=== PATIENT | male | born 1930 | race Caucasian/White ===

== ENCOUNTER 2020-08-13 06:28 | Emergency (ER) | payer OTHER ==
[~2020-08-13] VITALS: Ht 170.2 cm; Wt 74.8 kg
[2020-08-13 07:15] LABS: ABSOLUTE BASOPHILS 0.1 thou/uL (0.0-0.2); ABSOLUTE EOSINOPHILS 0.1 thou/uL (0.0-0.7); ABSOLUTE LYMPHOCYTES 0.6 thou/uL (0.8-5.3); ABSOLUTE MONOCYTES 0.7 thou/uL (0.0-1.2); ABSOLUTE NEUTROPHILS 6.5 thou/uL (1.6-8.1); BASOPHILS 0.7 %; EOSINOPHILS 1.1 %; HEMATOCRIT 43.4 % (42.0-52.0); HEMOGLOBIN 14.5 gm/dL (14.0-18.0); LYMPHOCYTES 7.8 %; MCH 30.6 pg (26.0-34.0); MCHC 33.3 g/dL (28.0-37.0); MCV 91.7 fL (80.0-100.0); MONOCYTES 8.6 %; NUCLEATED RBCS 0 /100WBC; PLATELET COUNT* 263 thou/uL (150-400); POLYS 81.8 %; RBC 4.74 mil/uL (4.50-6.00); RDW-CV 14.6 % (10.5-14.5)
[2020-08-13 07:25] LABS: CALCIUM 8.5 mg/dL (8.5-10.1); POTASSIUM 3.7 mmol/L (3.5-5.1)
[2020-08-13 07:36] LABS: MAGNESIUM 2.1 mg/dL (1.8-2.4); TOTAL BILIRUBIN 0.6 mg/dL (<0.1-1.0); TOTAL PROTEIN 6.8 g/dL (6.4-8.2)
[2020-08-13] MEDS ORDERED: COZAAR100 MG PO (07:39)
[2020-08-13] MEDS ORDERED: LIPITOR10 MG PO (07:40)
[2020-08-13] MEDS ORDERED: TRAZODONE HCL50 MG PO (07:40)
[2020-08-13] MEDS ORDERED: VITAMIN D310 MC2 PO (07:41)
[2020-08-13] MEDS ORDERED: NORVASC10 MG PO (07:41)
[2020-08-13] MEDS ORDERED: CARVEDILOL12.5 MG PO (07:41)
[2020-08-13] MEDS ORDERED: LUMIGAN2.5 M1 OPHTHALMIC (07:42)
[2020-08-13] MEDS ORDERED: NIGHTTIME SLEEP25 M2 PO (07:43)
[2020-08-13 10:36] LABS: URINE BILIRUBIN NEGATIVE (Negative); URINE BLOOD 2+ (Negative); URINE CLARITY CLEAR; URINE COLOR YELLOW; URINE GLUCOSE-RANDOM NEGATIVE (Negative); URINE KETONES NEGATIVE (Negative); URINE LEUKOCYTES-REFLEX NEGATIVE (Negative); URINE NITRITE-REFLEX NEGATIVE (Negative); URINE PROTEIN NEGATIVE (Negative)
[2020-08-13 10:46] LABS: SQUAMOUS 0-3 Few /LPF (0-3)
[2020-08-13 10:47] LABS: BACTERIA-REFLEX 1-9 Few /HPF (None Seen); CASTS None Seen /LPF (None Seen); CRYSTALS None Seen /LPF (None Seen); MUCUS None Seen strn/LPF (None Seen); URINE WBC-REFLEX 0-5 Rare /HPF (0-5)
[2020-08-13 10:54] VITALS: BP 157/67
--- NOTE | 2020-08-13 14:49 | EKG ---
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: AT : 1930 Requested By: Alia Jacobson Order Number: [id number] MD: Binu Guillen Measurements Intervals [place] Rate: 58 P: 54 CT: 170 QRS: 22 QRSD: 145 T: 120 QT: 413 QTc: 406 Interpretive Statements Sinus rhythm Multiple premature complexes, supraven with abberancy Probable left atrial enlargement LVH with secondary repolarization abnormality Compared to ECG 01/10/2009 12:48:37 pac's noted Electronically Signed On 08-13-2020 14:48:40 CDT by Binu Guillen [email or web address] <ELECTRONICALLY SIGNED> By: Binu Guillen MD, [facility] 08/13/20 1448 Binu Guillen MD, [facility] /EPI
== END 2020-08-13 10:55 | disposition home or self-care (01) ==
LOC: M.ERS 06:28
PROVIDERS: Emergency Medicine
DX: R53.1 Weakness (principal); R55 Syncope and collapse; I10 Essential (primary) hypertension; Z79.899 Other long term (current) drug therapy; Z98.890 Other specified postprocedural states

== ENCOUNTER 2020-08-15 16:47 | Inpatient (IN) | payer OTHER ==
[~2020-08-15] VITALS: Ht 170.2 cm; Wt 72.0 kg
[~2020-08-15 16:47] MED LIST: CARVEDILOL12.5 MG PO; COZAAR100 MG PO; LIPITOR10 MG PO; LUMIGAN2.5 M1 OPHTHALMIC; NIGHTTIME SLEEP25 M2 PO; NORVASC10 MG PO; TRAZODONE HCL50 MG PO; VITAMIN D310 MC2 PO
[2020-08-15 16:52] VITALS: BP 73/40
[2020-08-15 17:12] LABS: HEMATOCRIT 41.5 % (42.0-52.0); HEMOGLOBIN 13.5 gm/dL (14.0-18.0); MCH 30.1 pg (26.0-34.0); MCHC 32.5 g/dL (28.0-37.0); MCV 92.7 fL (80.0-100.0); MPV 8.3 fl. (7.2-11.1); NUCLEATED RBCS 0 /100WBC; PLATELET COUNT* 293 thou/uL (150-400); RBC 4.48 mil/uL (4.50-6.00); RDW-CV 14.9 % (10.5-14.5); WBC 11.1 thou/uL (4.0-11.0)
[2020-08-15 17:26] LABS: CALCIUM 8.8 mg/dL (8.5-10.1)
[2020-08-15 17:28] LABS: CREATININE 2.2 mg/dL (0.6-1.3)
[2020-08-15 17:37] LABS: ALBUMIN 3.1 g/dL (3.4-5.0); TOTAL PROTEIN 6.5 g/dL (6.4-8.2)
[2020-08-15 17:40] LABS: ABSOLUTE BASOPHILS 0.1 thou/uL (0.0-0.2); ABSOLUTE LYMPHOCYTES 0.2 thou/uL (0.8-5.3); ABSOLUTE MONOCYTES 0.3 thou/uL (0.0-1.2); ABSOLUTE NEUTROPHILS 10.4 thou/uL (1.6-8.1); PLATELET ESTIMATE ADEQUATE
[2020-08-15 18:00] LABS: URINE BLOOD 3+ (Negative); URINE CLARITY CLEAR; URINE COLOR YELLOW; URINE GLUCOSE-RANDOM NEGATIVE (Negative); URINE KETONES TRACE (Negative); URINE LEUKOCYTES-REFLEX NEGATIVE (Negative); URINE NITRITE-REFLEX NEGATIVE (Negative); URINE PROTEIN TRACE (Negative); URINE SPECIFIC GRAVITY 1.025 (1.005-1.030)
[2020-08-15 18:02] LABS: ICTOTEST (BILI CONFIRMATORY) Negative (Negative); URINE BILIRUBIN 2+ (Negative)
[2020-08-15 18:07] LABS: HYALINE CASTS >10 Many /LPF (None Seen); MUCUS >6 Heavy strn/LPF (None Seen)
[2020-08-15 18:08] LABS: SQUAMOUS 4-10 Moderate /LPF (0-3); URINE RBC >20 Many /HPF (0-2); URINE WBC-REFLEX 0-5 Rare /HPF (0-5)
[2020-08-15 18:09] LABS: BACTERIA-REFLEX 1-9 Few /HPF (None Seen); CRYSTALS None Seen /LPF (None Seen)
[2020-08-15 20:10] VITALS: BP 116/54
[2020-08-16 04:00] VITALS: BP 148/55
--- NOTE | 2020-08-16 04:40 | NUR ---
ASSUMED CARE OF PATIENT AT APPROXIMATELY 2000. PATIENT BECAME INCREASINGLY CONFUSED THE NIGHT PROGRESSED. PATIENT WAS RESTLESS AND DID NOT SLEEP. PATIENT CALLED OUT THROUGH THE NIGHT AND WANTS TO GO HOME. PATIENT WAS NOT EASILY REDIRECTED.
[2020-08-16 08:00] VITALS: BP 148/70
--- NOTE | 2020-08-16 10:47 | EKG ---
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: : 1930 Requested By: Ovidio Jacobson Order Number: [id number] MD: Sandip Gutiérrez Measurements Intervals [place] Rate: 64 P: 23 MT: 166 QRS: 36 QRSD: 87 T: 132 QT: 425 QTc: 439 Interpretive Statements Sinus rhythm Atrial premature complexes Abnormal R-wave progression, early transition Borderline repol abnrm, anterolateral leads Compared to ECG 08/13/2020 06:38:44 Atrial premature complex(es) now present Strict voltage criteria for left ventricular hypertrophy no longer present Electronically Signed On 08-16-2020 10:47:00 CDT by Sandip Gutiérrez [email or web address] <ELECTRONICALLY SIGNED> By: Sandip Gutiérrez MD, [facility] 08/16/20 1047 170 170 Sandip Gutiérrez MD, [facility] /EPI
[2020-08-16 14:07] VITALS: BP 128/55
--- NOTE | 2020-08-16 14:40 | NUR ---
Pt is A&O. Resides at home with family. Pt states he has a walker and cane at home, primarily uses the walker. No home o2. No hx of HH or SNF. Goal is home at dc, per Pt, Pt states that he may be open to HH. CM spoke with , wants Pt placed for SNF, CM left VM for Pt's , await call back. Apparently there is concern regarding her ability to care for Pt at home anymore. Therapy evals ordered. CM following.
[2020-08-16 19:42] VITALS: BP 138/58
[2020-08-16 20:00] VITALS: BP 154/68
[2020-08-17] VITALS (7 sets, daily range): BP systolic 104–162; BP diastolic 58–71
[2020-08-17 06:22] LABS: ABSOLUTE BASOPHILS 0.1 thou/uL (0.0-0.2); ABSOLUTE EOSINOPHILS 0.2 thou/uL (0.0-0.7); ABSOLUTE LYMPHOCYTES 0.9 thou/uL (0.8-5.3); ABSOLUTE MONOCYTES 0.6 thou/uL (0.0-1.2); ABSOLUTE NEUTROPHILS 7.6 thou/uL (1.6-8.1); BASOPHILS 0.6 %; EOSINOPHILS 2.1 %; HEMOGLOBIN 13.3 gm/dL (14.0-18.0); LYMPHOCYTES 9.2 %; MCH 30.4 pg (26.0-34.0); MCHC 33.2 g/dL (28.0-37.0); MCV 91.4 fL (80.0-100.0); MONOCYTES 6.5 %; MPV 7.9 fl. (7.2-11.1); NUCLEATED RBCS 0 /100WBC; POLYS 81.6 %; RBC 4.38 mil/uL (4.50-6.00); RDW-CV 14.8 % (10.5-14.5); WBC 9.3 thou/uL (4.0-11.0)
[2020-08-17 06:27] LABS: CALCIUM 8.1 mg/dL (8.5-10.1); POTASSIUM 3.5 mmol/L (3.5-5.1)
[2020-08-17 06:32] LABS: CREATININE 1.1 mg/dL (0.6-1.3)
[2020-08-17 06:36] LABS: PLATELET COUNT* 212 thou/uL (150-400)
--- NOTE | 2020-08-17 09:40 | NUR ---
WOUND NURSE: PATIENT SEEN TO ADDRESS MULTIPLE SMALL ABRASIONS ON BILATERAL LOWER EXTREMITIES PRESENT ON THE PRETIBIAL ASPECTS FROM ABOVE THE ANKLES TO BELOW THE KNEES. PATIENT STATES THIS IS THE RESULT OF FREQUENT FALLS. ALL ARE COVERED WITH SCABS AND THERE ARE NO OPEN OR DRAINING WOUNDS NOTED. FEET ARE WARM AND PINK WITH CAPILLARY REFILL < 3 SECONDS. PEDAL PULSES ARE PALPABLE BILATERALLY. PATIENT SEEMS CONFUSED AND IS CURRENTLY NOT TEACHEABLE. DID TRY TO INSTRUCT ON SAFETY WITH MOBILITY, BUT PATIENT DOESN'T SEEM RECEPTIVE AT THIS TIME.
--- NOTE | 2020-08-17 13:31 | NUR ---
REFERRAL PACKET FAXED TO [facility] ([phone]) [facility] ([phone]) AWAITING APPROVAL. CM TO CONTINUE TO FOLLOW FOR SAFE D/C PLANNING.
--- NOTE | 2020-08-17 14:35 | NUR ---
DC plan changed. Faxed snf referral to [facility] per dtr's request. Await insurance auth.
--- NOTE | 2020-08-17 14:51 | NUR ---
ELIJAH BRANDON Bedside Note: Referral received for HH. Attempted meaningful conversation and assessment of patient who could not say for sure where he is and could not give his address (he has recently moved). I suggested we call his and he said he would not believe anything I said, so we called her and put the call on speaker. He then said it was not her, and then accused her of lying, and asked her what her pet name for him was and she said [place], spelled with an s in front of it and he then said she was being coached. I placed a call to the daughter DENIS Veloz and stated he seemed unsafe to be cared for at home and she said she wanted him to go back to [place] [facility]. Texted spring encaser, Grover and Dr. Cuellar this all. Will not discharge on HH.
--- NOTE | 2020-08-17 18:46 | NUR ---
ASSUMED PT CARE AT 0730, PT ALERT AND ORIENTED TO SELF ONLY, VERY CONFUSED, AGITATED AND YELLS OUT FREQUENTLY. PT'S SON, ELVIS, CALLED AND UPDATED ON POC. PT FREQUENTLY ORIENTED TO POC, MEDS, GOALS, DC TOMORROW, LABS BUT CONTINUED TO ASK FREQUENTLY "WHAT'S GOING ON". PT THINKS NURSING STAFF IS CONSPIRING AGAINST HIM AND STATES THAT WHAT WE ARE DOING IS "AGAINST THE LAW", I ASKED WHAT THAT MEANT AND PT STATES "YOU KNOW WHAT I'M TALKING ABOUT". PT PARANOID AND AGITATED THROUGHOUT SHIFT. SON, ELVIS, NOW HERE AND PT IS CALM. PT FREQUENTLY CHECKED ON TO GET HIM TO THE BATHROOM AND MEET NEEDS.
[2020-08-18] VITALS (7 sets, daily range): BP systolic 111–160; BP diastolic 52–82
--- NOTE | 2020-08-18 02:30 | NUR ---
ASSUMED CARE OF PT AT 1900. PT IS ALERT AT TIMES AND CONFUSED AT TIMES. PT IS VERY FORGETFUL. VSS. PERRLA. PT REPORTS ONGOING LEG CRAMPS. PT WAS GIVEN FLEXERIL AND STATES THAT IT IS BETTER. PT IS ON ROOM AIR. PT IS SINUS BRADYCARDIA ON THE TELEMETRY. PT IS RESTING COMFORTABLY IN BED. RESPIRATIONS ARE EVEN AND NONLABORED. WILL CONTINUE TO MONITOR PT.
[2020-08-18 05:05] LABS: CALCIUM 8.3 mg/dL (8.5-10.1); CREATININE 0.9 mg/dL (0.6-1.3); POTASSIUM 3.2 mmol/L (3.5-5.1)
[2020-08-18 05:06] LABS: ABSOLUTE BASOPHILS 0.1 thou/uL (0.0-0.2); ABSOLUTE EOSINOPHILS 0.2 thou/uL (0.0-0.7); ABSOLUTE LYMPHOCYTES 0.9 thou/uL (0.8-5.3); ABSOLUTE MONOCYTES 0.7 thou/uL (0.0-1.2); ABSOLUTE NEUTROPHILS 6.7 thou/uL (1.6-8.1); BASOPHILS 0.7 %; EOSINOPHILS 2.4 %; HEMATOCRIT 42.8 % (42.0-52.0); HEMOGLOBIN 14.3 gm/dL (14.0-18.0); LYMPHOCYTES 10.8 %; MCH 30.3 pg (26.0-34.0); MCHC 33.5 g/dL (28.0-37.0); MCV 90.7 fL (80.0-100.0); MONOCYTES 8.2 %; MPV 8.5 fl. (7.2-11.1); NUCLEATED RBCS 0 /100WBC; PLATELET COUNT* 223 thou/uL (150-400); POLYS 77.9 %; RBC 4.72 mil/uL (4.50-6.00); RDW-CV 14.8 % (10.5-14.5); WBC 8.6 thou/uL (4.0-11.0)
--- NOTE | 2020-08-18 10:15 | NUR ---
CM heard back from [facility], they do not have any male skilled beds. CM updated Pt's dtr, next choices would be [facility] or [facility]. Referrals to be sent. Continue to await insurance auth.
--- NOTE | 2020-08-18 13:17 | NUR ---
REFERRAL PACKET FAXED TO ([facility]) [facility] [phone] AWAITING APPROVAL. CM TO CONTINUE TO FOLLOW FOR SAFE DC PLANNING.
[2020-08-18] MEDS ORDERED: KEFLEX250 MG PO ×2 (14:24)
--- NOTE | 2020-08-18 19:00 | NUR ---
Pt alert, oriented to self only. Forgetful, and calls every 15 to 30 minutes stating he needs to "use the bathroom." When asked whether he needs to urinate or defecate, pt states "both." Pt assisted to BSC multiple times, but no BM. Voids approx 200 ml per void, but oftentimes does not void when asking to go to the bathroom. Bladder scan today showed 400 ml, and pt voided afterwards. VSS. Awaiting insurance authorization for accepatnce to [facility]. Will continue to monitor.
[2020-08-19 08:10] VITALS: BP 138/72
--- NOTE | 2020-08-19 10:12 | NUR ---
UPDATE FROM [employer] PT. AUTH IS UNDER REVIEW, PT. IS MEDICALLY APPROPRITE FOR [employer]. AWAITING APPROVAL FROM [employer]. CM TO CONTINUE TO FOLLOW FOR SAFE D/C PLANNING.
[2020-08-19 12:00] VITALS: BP 131/60
--- NOTE | 2020-08-19 12:19 | NUR ---
Continue to await insurance auth for skilled at [facility]
--- NOTE | 2020-08-19 14:25 | NUR ---
[facility] UPDATE MEDICAL DOCTOR REVIEWED CLINICALS STATED PT. SEEMED MEDICALLY ABLE TO D/C HOME WITH HH, [facility] WAS REQUESTED BY CIVIL ENGINEERING TEACHER AT [facility] TEAM. CM TO CONTINE TO FOLLOW FOR SAFE D/C PLANNING.
[2020-08-19 16:07] VITALS: BP 126/71
--- NOTE | 2020-08-19 17:45 | NUR ---
Attempted to call report to [facility]; employee on phone said there was no answer on the unit, but would leave message for them to call for report. 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 Pt discharged from unit per WC at 1740. athletic monitor and IV dc'd; pt dressed and ready for discharge prior to supper. Belongings packed and sent with patient.
== END 2020-08-19 17:45 | DRG 682 ==
LOC: M.ERS 16:47 → M.2W 17:34 → M.TBA-ER 17:34 → M.2W 20:01
PROVIDERS: Family Medicine; ADMIT Internal Medicine; ATTEND Internal Medicine
DX: N17.0 Acute kidney failure with tubular necrosis (principal); R65.11 Systemic inflammatory response syndrome (SIRS) of non-infectious origin with acute organ dysfunction; L03.115 Cellulitis of right lower limb; I95.9 Hypotension, unspecified; I10 Essential (primary) hypertension; Z20.822 Contact with and (suspected) exposure to COVID-19; Z98.42 Cataract extraction status, left eye; Z98.41 Cataract extraction status, right eye

== ENCOUNTER 2020-08-20 16:59 | Inpatient (IN) | payer OTHER ==
[~2020-08-20] VITALS: Ht 180.3 cm; Wt 71.2 kg
[~2020-08-20 16:59] MED LIST changes: +KEFLEX250 MG PO
[2020-08-20 17:04] VITALS: BP 152/69
[2020-08-20 19:13] LABS: ABSOLUTE EOSINOPHILS 0.1 thou/uL (0.0-0.7); ABSOLUTE LYMPHOCYTES 0.9 thou/uL (0.8-5.3); ABSOLUTE MONOCYTES 1.1 thou/uL (0.0-1.2); ABSOLUTE NEUTROPHILS 13.7 thou/uL (1.6-8.1); BASOPHILS 0.3 %; EOSINOPHILS 0.7 %; HEMATOCRIT 49.4 % (42.0-52.0); LYMPHOCYTES 5.6 %; MCHC 33.6 g/dL (28.0-37.0); MCV 92.2 fL (80.0-100.0); MONOCYTES 6.9 %; MPV 8.5 fl. (7.2-11.1); NUCLEATED RBCS 0 /100WBC; PLATELET COUNT* 242 thou/uL (150-400); POLYS 86.5 %; RBC 5.36 mil/uL (4.50-6.00); RDW-CV 14.8 % (10.5-14.5); WBC 15.9 thou/uL (4.0-11.0)
[2020-08-20 19:14] LABS: HEMOGLOBIN 16.6 gm/dL (14.0-18.0)
[2020-08-20 19:19] LABS: CALCIUM 9.3 mg/dL (8.5-10.1); CREATININE 1.4 mg/dL (0.6-1.3); POTASSIUM 4.3 mmol/L (3.5-5.1)
[2020-08-20 19:24] LABS: ALBUMIN 3.4 g/dL (3.4-5.0); TOTAL BILIRUBIN 0.7 mg/dL (<0.1-1.0); TOTAL PROTEIN 7.4 g/dL (6.4-8.2)
--- NOTE | 2020-08-20 20:48 | NUR ---
UNABLE TO ADVANCE JUAN [address] UNABLE TO ADVANCE 18 FR CATHETER, COUDE. SPOKE TO MARQUES, WHO SPOKE TO UROLOGY. PATIENT IS TO BE ADMITTED.
[2020-08-20 23:01] VITALS: BP 133/67
[2020-08-20 23:15] VITALS: BP 161/74
[2020-08-21 08:30] VITALS: BP 142/77
--- NOTE | 2020-08-21 11:08 | NUR ---
Patient being taken to OR for cath placement by bed. IV is not working, OR nurse has been notified. Daughter called to concent for procedure, verified with 2 RN's.
--- NOTE | 2020-08-21 12:55 | NUR ---
PT RETURN FROM OR WITH NEW JUAN IN PLACE. NO CBI ORDERS GIVEN.
[2020-08-21 13:45] VITALS: BP 112/61
--- NOTE | 2020-08-21 14:26 | NUR ---
BLADDER SCAN REVEALS 6ML WITH NEW JUAN.
[2020-08-21 16:43] VITALS: BP 79/52
[2020-08-21 20:00] VITALS: BP 124/64
[2020-08-21 21:00] VITALS: BP 119/64
[2020-08-22 00:24] VITALS: BP 112/56
[2020-08-22 04:06] VITALS: BP 128/61
[2020-08-22 07:53] VITALS: BP 135/69
[2020-08-22 10:42] LABS: HEMATOCRIT 40.1 % (42.0-52.0); MCH 30.9 pg (26.0-34.0); MCHC 33.6 g/dL (28.0-37.0); MPV 8.8 fl. (7.2-11.1); RBC 4.36 mil/uL (4.50-6.00); WBC 12.4 thou/uL (4.0-11.0)
[2020-08-22 10:44] LABS: CALCIUM 8.2 mg/dL (8.5-10.1); POTASSIUM 3.6 mmol/L (3.5-5.1)
[2020-08-22 10:47] LABS: HEMOGLOBIN 13.5 gm/dL (14.0-18.0)
[2020-08-22 11:11] VITALS: BP 117/59
[2020-08-22 15:37] VITALS: BP 144/63
--- NOTE | 2020-08-22 17:48 | NUR ---
PT UP TO CHAIR THIS EVENING FOR DINNER AND TAKING IN GOOD PO. JUAN CATHETER REMAIN IN PLACE COLLECTING YELLOW URINE . PT DENIES PAIN OR SOA. WILL CONTINUE TO ASSESS.
[2020-08-23 04:19] LABS: HEMATOCRIT 40.9 % (42.0-52.0); HEMOGLOBIN 13.7 gm/dL (14.0-18.0); MCHC 33.6 g/dL (28.0-37.0); MCV 92.1 fL (80.0-100.0); RBC 4.44 mil/uL (4.50-6.00); WBC 10.3 thou/uL (4.0-11.0)
[2020-08-23 04:44] VITALS: BP 114/71
[2020-08-23 08:08] VITALS: BP 147/68
[2020-08-23 08:16] VITALS: BP 147/68
--- NOTE | 2020-08-23 09:57 | NUR ---
DR NOTIFIED PT C/O BILAT LEG CRAMPS-WORSE ON THE LEFT. BILAT PVD ON LEGS ALTHOUGH LLE MORE RED, VERY WARM, AND POSITIVE FOR HOMANS SIGN. ALSO NOTIFIED OF SURGICAL NOTE, NO DVT PROPHYLAXSIS REINSTATED, OR COAGS ON FILE. VENOUS DOPPLER ORDERED FOR AM.
--- NOTE | 2020-08-23 10:17 | EKG ---
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: KAREN : 1930 Requested By: Jasmyn Lockwood Order Number: [id number] Reading MD: Binu Guillen Measurements Intervals [place] Rate: 65 P: 50 NE: 178 QRS: 16 QRSD: 92 T: 163 QT: 428 QTc: 445 Interpretive Statements Sinus rhythm Atrial premature complexes Repol abnrm suggests ischemia, anterolateral Compared to ECG 08/15/2020 17:03:58 Possible ischemia now present Electronically Signed On 08-23-2020 10:17:49 CDT by Binu Guillen [email or web address] <ELECTRONICALLY SIGNED> By: Binu Guillen MD, [facility] 08/23/20 1017 0848 Binu Guillen MD, [facility] /EPI
--- NOTE | 2020-08-23 10:20 | EKG ---
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: KAREN : 1930 Requested By: Jasmyn Lockwood Order Number: [id number] Reading MD: Binu Guillen Measurements Intervals [place] Rate: 61 P: 53 MT: 177 QRS: 32 QRSD: 91 T: 182 QT: 439 QTc: 443 Interpretive Statements Sinus rhythm Atrial premature complexes in couplets Abnormal R-wave progression, early transition Repol abnrm suggests ischemia, anterolateral Compared to ECG 08/15/2020 17:03:58 Possible ischemia still present Electronically Signed On 08-23-2020 10:20:31 CDT by Binu Guillen [email or web address] <ELECTRONICALLY SIGNED> By: Binu Guillen MD, [facility] 08/23/20 1020 1351 1351 Binu Guillen MD, [facility] /EPI
[2020-08-23] MEDS ORDERED: LEVOFLOXACIN500 MG PO ×2 (10:25)
--- NOTE | 2020-08-23 10:52 | NUR ---
Nutrition: Pt admitted with davis cath problem. Consult received for wt change. Pt stated he usually weighs about 165#. Current wt recorded as 157#. Pt stated he hasn't noticed any wt change. Per pt and nsg, he is eating well, 50-100% of meals. Meds, hx, labs noted. Albumin 3.4. Chopped diet. He did agree to Ensure vanilla, although he has discharge orders for today. Consider low nutrition risk. Will order Ensure for lunch.
--- NOTE | 2020-08-23 13:18 | NUR ---
Pt dc to [facility] on 08/19, readmitted to have davis placed. Pt discharging back to [facility] today, facility to continuous pickling line pickler helper at 4. Chart copied. Nurse report number is [phone]. Updated Pt's dtr. SNF Liaison to come and continuous pickling line pickler helper dc orders.
--- NOTE | 2020-08-23 15:07 | NUR ---
WOUND NURSE: PATIENT SEEN TO ADDRESS MULTIPLE SCABS ON BLE WHICH ARE CLEAN, DRY, AND INTACT EXCEPT FOR ONE ON THE LEFT PRETIBIAL ASPEC AND WHICH MEASURES 2.5 X 1.0 X 0.1 CM. CONTAINS PARTIAL THICKNESS TISSUE LOSS AND NO ACTIVE DRAINAGE. SCANT SEROUS DRAINAGE ON BORDERED FOAM DRESSING NOTED. PLAN TO PROTECT LEGS WITH SINGLE LAYER TUBIGRIPS AND CONTINUE WITH BORDERED FOAM DRESSING ON THE ONLY WOUND ON LLE OPEN.
--- NOTE | 2020-08-23 18:05 | NUR ---
WAITING ON THEM TO PICK PT UP FOR [facility] TO [facility]
--- NOTE | 2020-08-23 18:31 | NUR ---
PT DISCHARGED TO [facility]
== END 2020-08-23 18:31 | DRG 698 ==
LOC: M.ERS 16:59 → M.TBA-ER 20:54 → M.2W 20:54
PROVIDERS: Internal Medicine; Physician Assistant; ADMIT Internal Medicine; ATTEND Internal Medicine
PROC: 0T2BX0Z Change Drainage Device in Bladder, External Approach (ICD-10-PCS; principal; 2020-08-22)
PROC: 0TCB8ZZ Extirpation of Matter from Bladder, Via Natural or Artificial Opening Endoscopic (ICD-10-PCS; principal; 2020-08-22)
DX: T83.9XXA Unspecified complication of genitourinary prosthetic device, implant and graft, initial encounter (principal); N17.0 Acute kidney failure with tubular necrosis; I10 Essential (primary) hypertension; E78.5 Hyperlipidemia, unspecified; R31.0 Gross hematuria; D72.829 Elevated white blood cell count, unspecified; R33.9 Retention of urine, unspecified; S39.83XA Other specified injuries of pelvis, initial encounter; X58.XXXA Exposure to other specified factors, initial encounter; Y83.8 Other surgical procedures as the cause of abnormal reaction of the patient, or of later complication, without mention of misadventure at the time of the procedure; Z20.822 Contact with and (suspected) exposure to COVID-19; Z96.1 Presence of intraocular lens; Y92.89 Other specified places as the place of occurrence of the external cause; Z79.899 Other long term (current) drug therapy; Z98.41 Cataract extraction status, right eye; Y93.89 Activity, other specified; Y99.8 Other external cause status

== ENCOUNTER 2020-09-16 09:49 | Inpatient (IN) | payer OTHER ==
[~2020-09-16] VITALS: Ht 177.8 cm; Wt 84.6 kg
[~2020-09-16 09:49] MED LIST changes: +LEVOFLOXACIN500 MG PO
[2020-09-16 09:50] VITALS: BP 135/62
[2020-09-16] MEDS ORDERED: XANAX 0.5 MG0.5 MG PO (10:04)
[2020-09-16] MEDS ORDERED: VITAMIN C500 M2 PO (10:05)
[2020-09-16] MEDS ORDERED: GLYCOLAX119 GM (10:06)
[2020-09-16] MEDS ORDERED: MILK OF MA400 MG/5 M PO (10:07)
[2020-09-16] MEDS ORDERED: LIDOCAINE PAIN1 EACH TOP (10:07)
[2020-09-16] MEDS ORDERED: CVS SENNA PLUS1 EACH PO (10:07)
[2020-09-16 10:40] LABS: HEMATOCRIT 41.5 % (42.0-52.0); HEMOGLOBIN 13.8 gm/dL (14.0-18.0); MCH 30.5 pg (26.0-34.0); MCHC 33.3 g/dL (28.0-37.0); MCV 91.7 fL (80.0-100.0); MPV 8.2 fl. (7.2-11.1); NUCLEATED RBCS 0 /100WBC; PLATELET COUNT* 217 thou/uL (150-400); RBC 4.53 mil/uL (4.50-6.00); RDW-CV 15.1 % (10.5-14.5); WBC 20.6 thou/uL (4.0-11.0)
[2020-09-16 10:49] LABS: CALCIUM 8.8 mg/dL (8.5-10.1); CREATININE 1.1 mg/dL (0.6-1.3); POTASSIUM 4.7 mmol/L (3.5-5.1)
[2020-09-16 11:01] LABS: ALBUMIN 2.5 g/dL (3.4-5.0); TOTAL BILIRUBIN 0.6 mg/dL (<0.1-1.0)
[2020-09-16 11:21] LABS: ABSOLUTE LYMPHOCYTES 0.6 thou/uL (0.8-5.3); ABSOLUTE MONOCYTES 0.2 thou/uL (0.0-1.2); ABSOLUTE NEUTROPHILS 19.8 thou/uL (1.6-8.1); PLATELET ESTIMATE ADEQUATE
[2020-09-16 13:19] LABS: URINE BILIRUBIN NEGATIVE (Negative); URINE BLOOD 3+ (Negative); URINE CLARITY CLEAR; URINE COLOR YELLOW; URINE GLUCOSE-RANDOM NEGATIVE (Negative); URINE KETONES NEGATIVE (Negative); URINE LEUKOCYTES-REFLEX TRACE (Negative); URINE NITRITE-REFLEX NEGATIVE (Negative); URINE PROTEIN 1+ (Negative); URINE SPECIFIC GRAVITY >= 1.030 (1.005-1.030)
[2020-09-16 13:27] LABS: BACTERIA-REFLEX 1-9 Few /HPF (None Seen); MUCUS 0-3 Light strn/LPF (None Seen); SQUAMOUS 4-10 Moderate /LPF (0-3); URINE WBC-REFLEX 0-5 Rare /HPF (0-5)
[2020-09-16 13:28] LABS: CASTS None Seen /LPF (None Seen); CRYSTALS None Seen /LPF (None Seen)
--- NOTE | 2020-09-16 14:34 | EKG ---
[place] [address] ELECTROCARDIOGRAM REPORT Name: EVELYN ABREU Room: [place] [address] ADM IN ..#: [id number] Admission: 09/16/20 Attend Phys: Cherie Santiago, Discharge: Date of : [birth year] Date of Service: 09/16/20 1006 Report #: [id number] THIS REPORT FOR: //name// [facility] ED Test Date: 2020-09-16 Test Time: 10:06:22 Pat Name: EVELYN ABREU Department: Room: [facility] Gender: M Director Radio: JOSUE : 1930 Requested By: Ovidio Jacobson Order Number: [id number] MD: Binu Guillen Measurements Intervals [place] Rate: 77 P: [place]: QRS: 52 QRSD: 78 T: 158 QT: 361 QTc: 409 Interpretive Statements Atrial fibrillation LVH with secondary repolarization abnormality Anterior Q waves, possibly due to LVH Artifact in lead(s) I,II,III,aVL,aVF,V1,V2,V3,V4,V5,V6 Compared to ECG 08/21/2020 13:51:26 Left ventricular hypertrophy now present Q waves now present Sinus rhythm no longer present Electronically Signed On 09-16-2020 14:34:29 CDT by Binu Guillen [email or web address] <ELECTRONICALLY SIGNED> By: Binu Guillen MD, [facility] 09/16/20 1434 1006 1006 Binu Guillen MD, [facility] /EPI
[2020-09-16 15:30] VITALS: BP 132/67
[2020-09-16 17:20] VITALS: BP 107/59
[2020-09-16 17:30] VITALS: BP 113/61
[2020-09-16 20:00] VITALS: BP 128/58
[2020-09-17 00:06] VITALS: BP 159/71
[2020-09-17 03:26] VITALS: BP 116/54
[2020-09-17 04:32] LABS: MCH 30.4 pg (26.0-34.0); MCHC 33.3 g/dL (28.0-37.0); MCV 91.2 fL (80.0-100.0); MPV 8.5 fl. (7.2-11.1); RBC 3.95 mil/uL (4.50-6.00); RDW-CV 15.1 % (10.5-14.5); WBC 20.9 thou/uL (4.0-11.0)
[2020-09-17 04:51] LABS: ALBUMIN 1.7 g/dL (3.4-5.0); CALCIUM 7.7 mg/dL (8.5-10.1); CREATININE 0.9 mg/dL (0.6-1.3); MAGNESIUM 1.7 mg/dL (1.8-2.4); POTASSIUM 3.9 mmol/L (3.5-5.1); TOTAL BILIRUBIN 0.5 mg/dL (<0.1-1.0); TOTAL PROTEIN 5.3 g/dL (6.4-8.2)
[2020-09-17 08:00] VITALS: BP 116/65
[2020-09-17 16:22] VITALS: BP 126/65
[2020-09-17 20:00] VITALS: BP 126/58
[2020-09-17 20:44] VITALS: BP 106/52
[2020-09-18] VITALS: BP 103/51
[2020-09-18 04:55] VITALS: BP 119/57
[2020-09-18 13:46] VITALS: BP 134/68
[2020-09-18 19:54] VITALS: BP 135/68
[2020-09-18 20:19] VITALS: BP 138/73
[2020-09-19] VITALS: BP 97/49
[2020-09-19 04:23] LABS: HEMOGLOBIN 12.3 gm/dL (14.0-18.0); MCH 30.2 pg (26.0-34.0); MCHC 33.1 g/dL (28.0-37.0); MCV 91.2 fL (80.0-100.0); MPV 8.3 fl. (7.2-11.1); RBC 4.06 mil/uL (4.50-6.00); RDW-CV 15.1 % (10.5-14.5); WBC 13.3 thou/uL (4.0-11.0)
[2020-09-19 04:48] VITALS: BP 90/50
[2020-09-19 04:53] LABS: ALBUMIN 1.3 g/dL (3.4-5.0); CALCIUM 7.6 mg/dL (8.5-10.1); CREATININE 0.9 mg/dL (0.6-1.3); MAGNESIUM 2.1 mg/dL (1.8-2.4); POTASSIUM 3.8 mmol/L (3.5-5.1); TOTAL BILIRUBIN 0.4 mg/dL (<0.1-1.0); TOTAL PROTEIN 4.6 g/dL (6.4-8.2)
[2020-09-19 14:57] VITALS: BP 125/61
[2020-09-19 19:10] VITALS: BP 108/69
[2020-09-19 19:17] VITALS: BP 108/69
[2020-09-19 20:20] VITALS: BP 108/63
[2020-09-20 00:48] VITALS: BP 122/57
[2020-09-20 04:12] VITALS: BP 125/47
[2020-09-20 05:51] LABS: HEMATOCRIT 42.6 % (42.0-52.0); HEMOGLOBIN 13.9 gm/dL (14.0-18.0); MCH 30.3 pg (26.0-34.0); MCHC 32.7 g/dL (28.0-37.0); MCV 92.7 fL (80.0-100.0); MPV 8.7 fl. (7.2-11.1); RBC 4.59 mil/uL (4.50-6.00); RDW-CV 15.5 % (10.5-14.5); WBC 11.6 thou/uL (4.0-11.0)
[2020-09-20 06:12] LABS: ALBUMIN 1.6 g/dL (3.4-5.0); CALCIUM 7.5 mg/dL (8.5-10.1); POTASSIUM 3.9 mmol/L (3.5-5.1); TOTAL BILIRUBIN 0.5 mg/dL (<0.1-1.0); TOTAL PROTEIN 4.8 g/dL (6.4-8.2)
[2020-09-20 12:00] VITALS: BP 129/48
[2020-09-20 16:00] VITALS: BP 139/59
[2020-09-20 20:00] VITALS: BP 132/65
[2020-09-21] VITALS (17 sets, daily range): BP systolic 96–159; BP diastolic 39–74
[2020-09-21 04:04] LABS: HEMATOCRIT 38.4 % (42.0-52.0); HEMOGLOBIN 12.8 gm/dL (14.0-18.0); MCH 30.3 pg (26.0-34.0); MCHC 33.2 g/dL (28.0-37.0); MCV 91.2 fL (80.0-100.0); MPV 8.9 fl. (7.2-11.1); RBC 4.21 mil/uL (4.50-6.00); RDW-CV 15.4 % (10.5-14.5)
[2020-09-21 04:53] LABS: ALBUMIN 1.5 g/dL (3.4-5.0); CALCIUM 7.6 mg/dL (8.5-10.1); CREATININE 0.9 mg/dL (0.6-1.3); MAGNESIUM 1.9 mg/dL (1.8-2.4); POTASSIUM 3.5 mmol/L (3.5-5.1); TOTAL BILIRUBIN 0.5 mg/dL (<0.1-1.0); TOTAL PROTEIN 4.4 g/dL (6.4-8.2)
--- NOTE | 2020-09-21 14:58 | TEE ---
[place] [address] TRANSESOPHAGEAL ECHOCARDIOGRAM Name: LOISEVELYN Oconnor Room: [address] IN [facility]#: [id number] Admission: 09/16/20 Attend Phys: Cherie Santiago, Discharge: Date of : [birth year] Date of Service: 09/21/20 1458 Report #: [id number] THIS REPORT FOR: cc: Matthieu Urrutia MD, Vinod N. MD Liston, Michael J. MD [facility] ~ APPROVED REPORT Study performed: 09/21/2020 09:54:36 EXAM: Transesophageal Echocardiogram Patient Location: In-Patient Room #: [facility] Status: routine BSA: 1.90 HR: 62 bpm BP: 100/55 mmHg Rhythm: NSR Other Information Study Quality: Good Indications Assess Bacteremia Echo Enhancing Agent Indication: Rule out Shunt Agent(s) / Amount(s) Used: Agitated Saline 10 cc Procedure After obtaining informed consent, patient underwent transesophageal echo in the [employer]. Type of Sedation : Conscious Sedation Sedation was administered by Opal Clark RN. Sedation start time: 1000 Case end Time: 1010 Sedation was achieved intravenously with: Versed (3) Fentanyl (50) Transesophageal probe was inserted and advanced into esophagus without difficulty by Ryne Avila MD, [facility]. Echo enhancement indication: R/O Septal defect. Echo enhancement agent administered: Agitated Saline The GINO was performed without complications. Throughout the procedure, the blood pressure, pulse oximetry, cardiac rhythm, [place] [address] TRANSESOPHAGEAL ECHOCARDIOGRAM Name: EVELYN ABREU Room: [address] IN [facility]#: [id number] Admission: 09/16/20 Attend Phys: Cherie Santiago, Discharge: Date of : [birth year] Date of Service: 09/21/20 1458 Report #: [id number] The patient tolerated the procedure without adverse effects. Recovery from conscious sedation was uneventful and vital signs were stable. Left Ventricle The left ventricle is normal size. There is normal LV segmental wall motion. Mild concentric left ventricular hypertrophy. Left ventricular systolic function is normal. LVEF is 65-70%. Right Ventricle The right ventricle is normal size. The right ventricular systolic function is normal. Atria The left atrium size is normal. No thrombus is visualized in the left atrium or appendage. The interatrial septum is intact with no evidence for an atrial septal defect. The right atrium size is normal. Aortic Valve The aortic valve is normal in structure. No aortic regurgitation is present. There is no aortic valvular stenosis. Mitral Valve The mitral valve is normal in structure. Mild mitral regurgitation. No evidence of mitral valve stenosis. Tricuspid Valve The tricuspid valve is normal in structure. There is no tricuspid valve regurgitation noted. Pulmonic Valve The pulmonary valve is normal in structure. There is no pulmonic valvular regurgitation. Great Vessels The aortic root is normal in size. Pericardium There is no pericardial effusion. <Conclusion> The left ventricle is normal size. Mild concentric left ventricular hypertrophy. Left ventricular systolic function is normal. LVEF is 65-70%. [place] [address] TRANSESOPHAGEAL ECHOCARDIOGRAM Name: EVELYN ABREU Room: [address] IN ..#: [id number] Admission: 09/16/20 Attend Phys: Cherie Santiago, Discharge: Date of : [birth year] Date of Service: 09/21/20 1458 Report #: [id number] There is normal LV segmental wall motion. The left atrium size is normal. No thrombus is visualized in the left atrium or appendage. The interatrial septum is intact with no evidence for an atrial septal defect. There is no evidence of valvular vegetation. <ELECTRONICALLY SIGNED> By: Ryne Avila MD, [facility] 09/21/20 1458 1458 1458 Ryne Avila MD, [facility] /INF
[2020-09-22 01:10] VITALS: BP 152/65
[2020-09-22 04:50] LABS: ABSOLUTE BASOPHILS 0.1 thou/uL (0.0-0.2); ABSOLUTE EOSINOPHILS 0.2 thou/uL (0.0-0.7); ABSOLUTE LYMPHOCYTES 0.9 thou/uL (0.8-5.3); ABSOLUTE MONOCYTES 0.7 thou/uL (0.0-1.2); BASOPHILS 0.4 %; EOSINOPHILS 1.7 %; HEMATOCRIT 37.2 % (42.0-52.0); HEMOGLOBIN 12.4 gm/dL (14.0-18.0); LYMPHOCYTES 7.4 %; MCH 30.1 pg (26.0-34.0); MCHC 33.3 g/dL (28.0-37.0); MCV 90.5 fL (80.0-100.0); MONOCYTES 6.1 %; MPV 8.5 fl. (7.2-11.1); NUCLEATED RBCS 0 /100WBC; PLATELET COUNT* 140 thou/uL (150-400); POLYS 84.4 %; RBC 4.11 mil/uL (4.50-6.00); RDW-CV 15.4 % (10.5-14.5); WBC 11.9 thou/uL (4.0-11.0)
[2020-09-22 05:01] VITALS: BP 153/70
[2020-09-22 05:15] LABS: ALBUMIN 1.4 g/dL (3.4-5.0); CALCIUM 7.5 mg/dL (8.5-10.1); CREATININE 0.8 mg/dL (0.6-1.3); POTASSIUM 3.4 mmol/L (3.5-5.1); TOTAL BILIRUBIN 0.5 mg/dL (<0.1-1.0); TOTAL PROTEIN 4.7 g/dL (6.4-8.2)
[2020-09-22 08:00] VITALS: BP 178/75
[2020-09-22 12:10] VITALS: BP 160/70
[2020-09-22 16:39] VITALS: BP 167/74
[2020-09-22 20:00] VITALS: BP 156/72
[2020-09-23 00:52] VITALS: BP 152/53
[2020-09-23 04:26] VITALS: BP 140/60
[2020-09-23 08:00] VITALS: BP 148/47
[2020-09-23 12:01] VITALS: BP 144/70
[2020-09-23 12:07] LABS: HEMATOCRIT 40.5 % (42.0-52.0); HEMOGLOBIN 13.4 gm/dL (14.0-18.0); MCHC 33.1 g/dL (28.0-37.0); MCV 90.6 fL (80.0-100.0); NUCLEATED RBCS 0 /100WBC; PLATELET COUNT* 179 thou/uL (150-400); RBC 4.47 mil/uL (4.50-6.00); RDW-CV 15.6 % (10.5-14.5); WBC 11.7 thou/uL (4.0-11.0)
[2020-09-23 12:15] LABS: ALBUMIN 1.7 g/dL (3.4-5.0); CALCIUM 7.8 mg/dL (8.5-10.1); CREATININE 0.8 mg/dL (0.6-1.3); POTASSIUM 3.9 mmol/L (3.5-5.1); TOTAL BILIRUBIN 0.5 mg/dL (<0.1-1.0); TOTAL PROTEIN 4.9 g/dL (6.4-8.2)
[2020-09-23 12:39] LABS: ABSOLUTE LYMPHOCYTES 0.9 thou/uL (0.8-5.3); ABSOLUTE MONOCYTES 0.8 thou/uL (0.0-1.2); ABSOLUTE NEUTROPHILS 9.9 thou/uL (1.6-8.1); ATYPICAL LYMPHS 1 %; PLATELET ESTIMATE ADEQUATE
[2020-09-23 19:38] VITALS: BP 134/83
[2020-09-23 20:30] VITALS: BP 167/71
[2020-09-24 04:06] VITALS: BP 169/73
[2020-09-24 08:00] VITALS: BP 154/76
[2020-09-24 09:45] LABS: ABSOLUTE EOSINOPHILS 0.2 thou/uL (0.0-0.7); ABSOLUTE LYMPHOCYTES 0.7 thou/uL (0.8-5.3); ABSOLUTE MONOCYTES 0.6 thou/uL (0.0-1.2); ABSOLUTE NEUTROPHILS 9.5 thou/uL (1.6-8.1); BASOPHILS 0.2 %; EOSINOPHILS 1.4 %; HEMATOCRIT 42.9 % (42.0-52.0); HEMOGLOBIN 14.3 gm/dL (14.0-18.0); LYMPHOCYTES 6.5 %; MCH 29.4 pg (26.0-34.0); MCHC 33.4 g/dL (28.0-37.0); MCV 88.1 fL (80.0-100.0); MONOCYTES 5.8 %; MPV 7.9 fl. (7.2-11.1); NUCLEATED RBCS 0 /100WBC; PLATELET COUNT* 232 thou/uL (150-400); POLYS 86.1 %; RBC 4.87 mil/uL (4.50-6.00); RDW-CV 15.3 % (10.5-14.5)
[2020-09-24 10:24] LABS: CALCIUM 8.1 mg/dL (8.5-10.1); CREATININE 0.9 mg/dL (0.6-1.3); TOTAL BILIRUBIN 0.7 mg/dL (<0.1-1.0); TOTAL PROTEIN 6.1 g/dL (6.4-8.2)
[2020-09-24 12:00] VITALS: BP 150/71
[2020-09-24 20:00] VITALS: BP 164/69
[2020-09-25 05:24] LABS: ABSOLUTE BASOPHILS 0.1 thou/uL (0.0-0.2); ABSOLUTE EOSINOPHILS 0.2 thou/uL (0.0-0.7); ABSOLUTE LYMPHOCYTES 0.7 thou/uL (0.8-5.3); ABSOLUTE MONOCYTES 0.9 thou/uL (0.0-1.2); BASOPHILS 0.6 %; EOSINOPHILS 1.1 %; HEMATOCRIT 39.7 % (42.0-52.0); HEMOGLOBIN 13.1 gm/dL (14.0-18.0); LYMPHOCYTES 5.3 %; MCH 29.3 pg (26.0-34.0); MCV 88.8 fL (80.0-100.0); MONOCYTES 6.2 %; MPV 8.2 fl. (7.2-11.1); NUCLEATED RBCS 0 /100WBC; PLATELET COUNT* 241 thou/uL (150-400); POLYS 86.8 %; RBC 4.47 mil/uL (4.50-6.00); RDW-CV 15.1 % (10.5-14.5); WBC 13.9 thou/uL (4.0-11.0)
[2020-09-25 05:45] LABS: ALBUMIN 1.9 g/dL (3.4-5.0); CALCIUM 8.3 mg/dL (8.5-10.1); CREATININE 0.8 mg/dL (0.6-1.3); POTASSIUM 3.9 mmol/L (3.5-5.1); TOTAL BILIRUBIN 0.7 mg/dL (<0.1-1.0); TOTAL PROTEIN 5.8 g/dL (6.4-8.2)
[2020-09-25 08:00] VITALS: BP 158/64
[2020-09-25 16:28] VITALS: BP 165/68
[2020-09-25 20:00] VITALS: BP 142/66
[2020-09-26 07:55] VITALS: BP 148/66
[2020-09-26 08:07] LABS: HEMATOCRIT 40.6 % (42.0-52.0); HEMOGLOBIN 13.4 gm/dL (14.0-18.0); MCH 29.6 pg (26.0-34.0); MCHC 33.1 g/dL (28.0-37.0); MCV 89.5 fL (80.0-100.0); MPV 8.2 fl. (7.2-11.1); RBC 4.54 mil/uL (4.50-6.00); RDW-CV 15.1 % (10.5-14.5); WBC 13.5 thou/uL (4.0-11.0)
[2020-09-26 08:13] LABS: CALCIUM 8.2 mg/dL (8.5-10.1); CREATININE 0.8 mg/dL (0.6-1.3); POTASSIUM 3.6 mmol/L (3.5-5.1)
[2020-09-26 17:32] VITALS: BP 136/75; BP 96/58
[2020-09-27 04:56] LABS: HEMATOCRIT 39.2 % (42.0-52.0); HEMOGLOBIN 12.9 gm/dL (14.0-18.0); MCH 29.6 pg (26.0-34.0); MCHC 32.9 g/dL (28.0-37.0); MCV 89.9 fL (80.0-100.0); MPV 8.4 fl. (7.2-11.1); RBC 4.36 mil/uL (4.50-6.00); RDW-CV 15.2 % (10.5-14.5); WBC 11.3 thou/uL (4.0-11.0)
[2020-09-27 05:08] LABS: CALCIUM 8.1 mg/dL (8.5-10.1); CREATININE 0.9 mg/dL (0.6-1.3); POTASSIUM 3.2 mmol/L (3.5-5.1)
[2020-09-27 07:58] VITALS: BP 121/62
[2020-09-27 08:19] VITALS: BP 164/70
[2020-09-27 16:48] VITALS: BP 162/77
[2020-09-27 21:45] VITALS: BP 171/85
[2020-09-28 08:35] VITALS: BP 142/68
== END 2020-09-28 16:25 | DRG 871 ==
LOC: M.ERS 09:49 → M.2W 11:28 → M.TBA-ER 11:28 → M.ORTHSURG 11:28 → M.2W 09-17 20:35 → M.3W 09-24 17:00
PROVIDERS: Family Medicine; Internal Medicine; ADMIT Internal Medicine; ATTEND Internal Medicine
DX: A41.02 Sepsis due to Methicillin resistant Staphylococcus aureus (principal); G93.41 Metabolic encephalopathy; J69.0 Pneumonitis due to inhalation of food and vomit; S22.41XA Multiple fractures of ribs, right side, initial encounter for closed fracture; E87.1 Hypo-osmolality and hyponatremia; N13.8 Other obstructive and reflux uropathy; I10 Essential (primary) hypertension; Z20.822 Contact with and (suspected) exposure to COVID-19; Z96.1 Presence of intraocular lens; Z96.651 Presence of right artificial knee joint; N40.1 Benign prostatic hyperplasia with lower urinary tract symptoms; W18.39XA Other fall on same level, initial encounter; Y93.89 Activity, other specified; Z97.0 Presence of artificial eye; Z98.41 Cataract extraction status, right eye; Z91.81 History of falling; Z79.899 Other long term (current) drug therapy; Y92.89 Other specified places as the place of occurrence of the external cause; Y99.8 Other external cause status

== ENCOUNTER 2020-10-01 07:06 | Emergency (ER) | payer OTHER ==
[~2020-10-01] VITALS: Ht 182.9 cm; Wt 70.0 kg
--- NOTE | ~2020-10-01 | EMS ---
[facility] [address] [place] [address] EMS Patient Care Report Name: EVELYN ABREU [id number] Admission: 10/01/20 Attend Phys: Discharge: 10/01/20 Date of : [birth year] Report #: [id number] THIS REPORT FOR: //name// Report Transmitted: 10/04/2020 08:39 EMS Care Summary [facility] Incident [id number] @ 10/01/2020 06:10 Incident Location [address] [place] [address] Patient EVELYN ABREU Male, 89 Years 1930 Patient Address [address] [place] [address] Patient History Chronic Obstructive Pulmonary Disease (COPD),Kidney/Renal Failure,Anxiety,Sepsis,Hypotension, Patient Allergies No known allergies, Patient Medications Cozaar, Lipitor, Trazodone, Lumigan, Acetaminophen, Vancomycin, Tramadol, Xanax, Seroquel, Chief Complaint I fell earlier Disposition Transported No Lights/[place] Reason Falls Transported To [facility] Narrative Med 1 response requested to [facility] for male that fell and has been since having back pain. Med 1 copied the call and began our response to the scene. Med 1 arrived on scene without incident. We were walked to the patients [facility] [address] [place] [address] EMS Patient Care Report Name: EVELYN ABREU [facility] [id number] Admission: 10/01/20 Attend Phys: Discharge: 10/01/20 Date of : [birth year] Report #: [id number] room by security. Laying supine in bed we found a male. He's alert to his usual which is GCS of 14 due to dementia. Patient rolled out of bed roughly an hour prior to EMS being called. Staff picked the patient up post fall and placed him back in bed. Patient has a history of chronic back pain but has complained more than usual of pain since falling. Staff was not able to say if he passed out or hit his head. Patient takes no blood thinner. His head and neck were palpated with no pain complaints upon palpation. No outward deformities noted. He had no outward bleeding. He was moved to the cot where he was moved to a position of comfort. He was covered and secured. He was then taken to the ambulance and placed inside. Vitals were obtained. He was placed on the cardiac nurse. IV access was not obtained due to a PICC line in place prior to. Staff is giving the patient antibiotics for sepsis. We began our transport to [facility] per request of staff. Patient was monitored with no acute changes. Report was called in to the ER via Med radio roughly 15 min prior to arrival. Upon arrival to the ER patient was taken inside. He was taken to ER 4 where he was moved. Report was given to the ER while signatures were obtained. Care transferred and Med 1 cleared to return to service. Initial Vitals @06:20P: 78,R: 16,BP: 164/70,Pain: 4/10,GCS: 14,SpO2: 99,Revised Trauma: 12, @06:26P: 74,R: 16,BP: 169/79,Pain: 4/10,GCS: 14,SpO2: 99,Revised Trauma: 12, @06:52P: 69,R: 14,BP: 142/70,Pain: 4/10,GCS: 14,SpO2: 95,Revised Trauma: 12, @06:37P: 73,R: 14,BP: 169/79,Pain: 4/10,GCS: 14,SpO2: 95,Revised Trauma: 12, Assessments @06:44MENTAL:Time Oriented,Person Oriented,Place Oriented,Event Oriented,Confused,SKIN:HEENT:LUNG SOUNDS:ABDOMEN:PELVIS//GI:EXTREMITIES:PULSE:NEURO:@07:00MENTAL:Place Oriented,Person Oriented,Event Oriented,Time Oriented,Confused,SKIN:HEENT:LUNG SOUNDS:ABDOMEN:PELVIS//GI:EXTREMITIES:PULSE:NEURO: Impression Back Pain Procedures @06:21ALS AssessmentResponse: UnchangedSucceeded Timeline 06:07,Call Received 06:10,Dispatched 06:13,[place] [address] EMS Patient Care Report Name: EVELYN ABREU Room: [facility] Kalie#: [id number] Admission: 10/01/20 Attend Phys: Discharge: 10/01/20 Date of : [birth year] Report #: [id number] 06:18,On Scene 06:19,At Patient 06:20,BP: 164/70 M,PULSE: 78,RR: 16 R,SPO2: 99 Ox,ETCO2: ,BG: ,PAIN: 4,GCS: 14, 06:21,ALS Assessment,Response: UnchangedSucceeded, 06:26,BP: 169/79 M,PULSE: 74,RR: 16 R,SPO2: 99 Ox,ETCO2: ,BG: ,PAIN: 4,GCS: 14, 06:28,Depart Scene 06:37,BP: 169/79 M,PULSE: 73,RR: 14 R,SPO2: 95 Ox,ETCO2: ,BG: ,PAIN: 4,GCS: 14, 06:52,BP: 142/70 M,PULSE: 69,RR: 14 R,SPO2: 95 Ox,ETCO2: ,BG: ,PAIN: 4,GCS: 14, 07:00,At Destination 07:24,Call Closed Disclaimer v1.1 Copyright 2020 [employer] This EMS Care Summary contains data elements from the applicable legal record (which may be displayed differently). It is designed to provide pertinent information for the following purposes: continuity of care, clinical quality, and state data reporting. The complete legal record is available to ED staff and administrators of the receiving hospital in [facility]'s Patient Tracker. All data is provided "as is."
[~2020-10-01 07:06] MED LIST changes: +CVS SENNA PLUS1 EACH PO; +GLYCOLAX119 GM; +LIDOCAINE PAIN1 EACH TOP; +MILK OF MA400 MG/5 M PO; +VITAMIN C500 M2 PO; +XANAX 0.5 MG0.5 MG PO
[2020-10-01] MEDS ORDERED: SEROQUEL 25 MG25 M1 PO (07:19)
[2020-10-01] MEDS ORDERED: TRAMADOL 50 MG50 MG PO (07:19)
[2020-10-01] MEDS ORDERED: MILK OF MA400 MG/5 M PO (07:20)
[2020-10-01] MEDS ORDERED: VANCOCIN 125 M125 M1 IV (07:20)
[2020-10-01] MEDS ORDERED: NYSTATIN1 EAC9 TOP (07:21)
[2020-10-01 08:53] VITALS: BP 140/68
--- NOTE | 2020-10-02 10:30 | EKG ---
[place] [address] ELECTROCARDIOGRAM REPORT Name: EVELYN ABREU Anastasia [facility] [id number] Admission: 10/01/20 Attend Phys: Discharge: 10/01/20 Date of : [birth year] Date of Service: 10/01/20 0710 Report #: [id number] THIS REPORT FOR: //name// [facility] ED Test Date: 2020-10-01 Test Time: 07:10:48 Pat Name: EVELYN ABREU Department: Room: Gender: Slate Picker: : 1930 Requested By: Jordy Koch Order Number: [id number] Reading MD: Binu Guillen Measurements Intervals [place] Rate: 60 P: 16 CT: 170 QRS: 13 QRSD: 92 T: 127 QT: 471 QTc: 471 Interpretive Statements Sinus rhythm Atrial premature complexes Repol abnrm suggests ischemia, anterolateral Compared to ECG 09/16/2020 10:06:22 Left ventricular hypertrophy no longer present Q waves no longer present Electronically Signed On 10-02-2020 10:30:15 CDT by Binu Guillen [email or web address] <ELECTRONICALLY SIGNED> By: Binu Guillen MD, [facility] 10/02/20 1030 0710 Binu Guillen MD, [facility] /EPI
== END 2020-10-01 09:25 ==
LOC: M.ERS 07:06
DX: Z02.89 Encounter for other administrative examinations (principal); F03.90 Unspecified dementia, unspecified severity, without behavioral disturbance, psychotic disturbance, mood disturbance, and anxiety; W05.0XXA Fall from non-moving wheelchair, initial encounter; Y93.89 Activity, other specified; Y92.128 Other place in nursing home as the place of occurrence of the external cause; Y99.9 Unspecified external cause status